=== PATIENT | male | born 2000 | race Two or more races ===

== ENCOUNTER 2025-01-10 21:07 | Emergency (ER) | payer BC, MEDICAID ==
[~2025-01-10] VITALS: Ht 193 cm; Wt 102.6 kg
[2025-01-10 23:53] VITALS: BP 156/90; PULSE 84; RESP 12; TEMP 98.4; O2SAT 100
[2025-01-11] MEDS ORDERED: IBUP-1456 PO
--- NOTE | 2025-01-11 | ED.PDOC ---
Musculoskeletal HPI Comments 24-year-old male presents to ER with complaints of left knee pain x1 day. Patient reports that he felt a popping sensation/sudden onset of pain and associated swelling to left knee after doing a "take down" during [employer]u practice at 7:30 p.m. prior to arrival to ER. He reports 04/12 pain to left knee present with movement only, denying any other pain. Denies use of medications for current symptoms and presents to ER ambulatory on arrival, with steady gait, in no distress. Denies numbness/tingling, hip pain or any further symptoms/complaints Chief Complaint: Lower Extremity Time Seen by MD: 21:10 Primary Care Provider: UNKNOWN Reviewed Notes: Nurses Notes, Medications, Allergies Allergies: Coded Allergies: NO KNOWN ALLERGIES (Unverified , 01/10/25) Home Meds Active Scripts Ibuprofen (Ibuprofen) 800 Mg Tab, 1 TAB PO TID PRN, #30 TAB 0 Refills Prov:EDILIANATALIA MALAVE 01/11/25 Information Source: Patient Mode of Arrival: Ambulatory Past Medical History PAST MEDICAL HISTORY: Denies Surgical History: Appendectomy Family History Family History: Unknown Social History Smoker: Non-Smoker Alcohol: Denies ETOH Use Drugs: Denies Drug Use Lives In: Home Constitutional: denies: chills, diaphoresis, fatigue, fever, malaise, sweats, weakness, others EENTM: denies: blurred vision, double vision, ear bleeding, ear discharge, ear drainage, ear pain, ear ringing, eye pain, eye redness, hearing loss, mouth pain, mouth swelling, nasal discharge, nose bleeding, nose congestion, nose pain, photophobia, tearing, throat pain, throat swelling, voice changes, others Respiratory: denies: cough, hemoptysis, orthopnea, SOB at rest, shortness of breath, SOB with excertion, stridor, wheezing, others Cardiovascular: denies: chest pain, dizzy spells, diaphoresis, Dyspnea on exertion, edema, irregular heart beat, left arm pain, lightheadedness, palpitations, PND, syncope, others Gastrointestinal: denies: abdomen distended, abdominal pain, blood streaked bowels, constipated, diarrhea, dysphagia, difficulty swallowing, hematemesis, melena, nausea, poor appetite, poor fluid intake, rectal bleeding, rectal pain, vomiting, others Genitourinary: denies: burning, dysuria, flank pain, frequency, hematuria, incontinence, penile discharge, penile sore, pain, testicle pain, testicle swelling, urgency, others Neurological: denies: dizziness, fainting, headache, left sided numbness, left sided weakness, numbness, paresthesia, pre-existing deficit, right sided numbness, right sided weakness, seizure, speech problems, tingling, tremors, weakness, others Musculoskeletal: reports: others ( STATED IN HPI) Integumetry: reports: others ( STATED IN HPI) Allergic/Immunocompromised: denies: Difficulty Healing, Frequent Infections, Hives, Itching, others Hematologic/Lymphatic: denies: anemia, blood clots, easy bleeding, easy bruising, swollen glands, others Endocrine: denies: excessive hunger, excessive sweating, excessive thirst, excessive urination, flushing, intolerance to cold, intolerance to heat, unexplained weight gain, unexplained weight loss, others Psychiatric: denies: anxiety, bipolar disorder, depression, hopeless, panic disorder, schizophrenia, sleepless, suicidal, others Physical Exam General Appearance: No Apparent Distress HEENT: PERRL/EOMI Neck: Full Range of Motion, Non-Tender, Normal Respiratory: Chest Non-Tender, Lungs Clear, No Accessory Muscle Use, No Respiratory Distress, Normal Breath Sounds Cardiovascular: No Murmur, No Gallop, Regular Rate/Rhythm Breast Exam: Deferred Gastrointestinal: NOT DONE Genitalia: Deferred Pelvic: Deferred Rectal: Deferred Extremities: No calf tenderness, Normal capillary refill, Normal range of motion Musculoskeletal : Extremity Location: Knee (TTP/MILD SWELLING TO LEFT ANTERIOR KNEE NOTED. POSITIVE JOSE M'S TEST LEFT KNEE. NEGATIVE ANTERIOR DRAWER TEST LEFT KNEE. NO FURTHER SKIN CHANGES/DEFORMITY NOTED. PULSES INTACT. NO OTHER TTP TO LEFT LOWER EXTREMITY NOTED. STEADY GAIT APPRECIATED) Neurologic: Alert, lead cargoman II-XII nml as Tested, No Motor Deficits, Normal Affect, Normal Mood, No Sensory Deficits Cerebellar Function: Normal Reflexes: Normal Skin: Dry, Normal Color, Warm Peripheral Pulses: 2+ dorsalis pedis (R), 2+ dorsalis pedis (L) Lymphatic: No Adenopathy Was a procedure done? Was a procedure done?: No Sedation Sedation?: No Differential Diagnosis EXT Differential Diagnosis: Fracture, Dislocation, Neurovascular injury X-Ray, Labs, Meds, VS Vital Signs Date Time Temp Pulse Resp B/P (MAP) Pulse Ox O2 Delivery O2 Flow Rate FiO2 01/10/25 23:53 100 Room Air* 0 21 01/10/25 23:53 98.4 84 12 156/90 (112) 100 98.4 01/10/25 21:45 98.4 84 12 156/90 (112) 100 98.4 PATIENT: QUAN VILLASENOR ACCT: [id number] UNIT: [id number] : 2000 LOC: ER ROOM / BED: / AGE / SEX: 24 / M ADM STATUS: REG ER SERVICE 03 ORDERING PHYSICIAN: NATALIA YEBOAH PROCEDURE(s): LKNE3 - L KNEE 3V XRAY REASON: LEFT KNEE PAIN ORDER NUMBER(s): [id number], ACCESSION NUMBER(s): [id number] EXAM: XY L KNEE 3V XRAY HISTORY: LEFT KNEE PAIN COMPARISON: None TECHNIQUE: 3 views of the left knee were performed. FINDINGS: No acute fracture is identified about the left knee. No significant joint space narrowing. No evidence of significant joint effusion. IMPRESSION: 1. Unremarkable radiographs of the left knee. ATED BY: ALEXANDER RAMOS MD DICTATED DATE/TIME: 01/10/252356 SIGNED BY: ALEXANDER RAMOS MD SIGNED DATE/TIME: 01/10/252356 CC: LEFT KNEE X-RAY REVIEWED LEFT KNEE IMMOBILIZER APPLIED PATIENT NEUROVASCULARLY INTACT AND IN NO DISTRESS PRIOR TO DISCHARGE ADVISED ON REST/NO STRENUOUS ACTIVITY, ELEVATION AND ALTERNATE ICE ON/OFF NEEDED FOR PAIN/SWELLING ADVISED TO FOLLOW UP WITH PCP AND ORTHOPEDICS IN 1-2 DAYS PATIENT VERBALIZED UNDERSTANDING AND AGREEABLE WITH CURRENT PLAN OF CARE ADVISED TO RETURN TO ER IMMEDIATELY IF SYMPTOMS WORSEN Images Reviewed?: Images reviewed and evaluated by me Time of 1ST Reevaluation: 23:24 Reevaluation 1ST: N/A Patient Education/Counseling: Diagnosis, Treatment, Prognosis, Need For Follow Up Family Education/Counseling: No Family Present Departure 1 Departure Time of Disposition: 23:52 Impression: Primary Impression: Left knee sprain Qualified Codes: S83.92XA - Sprain of unspecified site of left knee, initial encounter Disposition: HOME / SELF CARE / HOMELESS Condition: Stable e-Prescriptions Ibuprofen (Ibuprofen) 800 Mg Tab 1 TAB PO TID PRN, #30 TAB 0 Refills Prov: NATALIA YEBOAH 01/11/25 Discharged With: Friend Critical Care Note Critical Care Time?: No Stability Stability form required: No Heart Score Heart Score: Heart Score Response (Comments) Value History N/A 0 EKG N/A 0 Age N/A 0 Risk Factors N/A 0 Troponin N/A 0 Total 0 NATALIA YEBOAH Jan 11, 2025 00:00
== END 2025-01-11 00:10 | disposition home or self-care (01) ==
LOC: ER 21:07
DX: S83.8X2A Sprain of other specified parts of left knee, initial encounter (principal); Z90.49 Acquired absence of other specified parts of digestive tract; X58.XXXA Exposure to other specified factors, initial encounter; Y93.89 Activity, other specified; Y92.89 Other specified places as the place of occurrence of the external cause; Y99.8 Other external cause status
CPT/HCPCS: 29505; 73562